=== PATIENT | female | born 1970 | race African-American/Black ===

== ENCOUNTER 2021-07-20 17:30 | Emergency (ER) | payer OTHER, BC | END 2021-07-20 18:40 | disposition home or self-care (01) | LOC: MADERS 17:30 | DX: S13.9XXA Sprain of joints and ligaments of unspecified parts of neck, initial encounter (principal); S33.5XXA Sprain of ligaments of lumbar spine, initial encounter; V49.50XA Passenger injured in collision with unspecified motor vehicles in traffic accident, initial encounter | CPT/HCPCS: 72100 ==